=== PATIENT | male | born 1960 | race Caucasian/White ===

== ENCOUNTER 2016-06-25 00:06 | Emergency (ER) | payer BC, OTHER ==
--- NOTE | 2016-06-25 00:13 | EDM.PDOC ---
ED HISTORY OF PRESENT ILLNESS - General Chief Complaint: Cardiovascular Problem Stated Complaint: [facility] Time Seen by Provider: 06/25/16 00:08 - History of Present Illness INITIAL COMMENTS - FREE TEXT/NARRATIVE: 55-year-old male presents emergency room with chest pain. This chest pain started about an hour before arrival. The patient was asleep and it awoke him. The pain is not burning. The pain is substernal and left chest. The patient took 4 aspirin at home prior to calling 911 these were 325 mg aspirin. The patient has not had any recent reflux or heartburn. His chest pain is not associated with diaphoresis or shortness of breath. Patient does not have a prior history of coronary artery disease he is treated for hypothyroidism and this is closely monitor is regular physician. The patient drinks on a regular basis he had 5 or 6 beers tonight. Patient also smokes. Family history is noncontributory. Upon arrival here the patient is near pain free he has a little residual arm pain. - Related Data Allergies/ADRs: Allergies Allergy/AdvReac Type Severity Reaction Status Date / Time No Known Allergies Allergy Verified 06/25/16 00:13 Home Meds: Home Meds Levothyroxine Sodium [Synthroid] 225 mcg PO DAILY 09/02/13 [History] Social & Family History - Tobacco Use Years of Tobacco use: 20 - Alcohol Use Days Per Week of Alcohol Use: 7 Number of Drinks Per Day: 2 Total Drinks Per Week: 14 - Recreational Drug Use Recreational Drug Use: No ED ROS GENERAL - Review of Systems Review Of Systems: See Below Constitutional: Reports: no symptoms HEENT: Reports: No symptoms Respiratory: Reports: no symptoms Cardiovascular: Reports: Chest pain. Denies: Dyspnea on exertion Endocrine: Reports: no symptoms GI/Abdominal: Reports: No symptoms : Reports: no symptoms Neurological: Reports: no symptoms ED EXAM, GENERAL - Physical Exam Exam: See Below Exam Limited By: No limitations General Appearance: alert, no apparent distress Head: atraumatic, normocephalic Neck: normal inspection, supple, non-tender, full range of motion. No: lymphadenopathy (L), lymphadenopathy (R) Respiratory/Chest: no respiratory distress, lungs clear, normal breath sounds Cardiovascular: regular rate, rhythm, no edema, no murmur GI/Abdominal: normal bowel sounds, soft, non tender Back Exam: normal inspection, CVA tenderness (L), CVA tenderness (R) Extremities: normal inspection, no pedal edema Neurological: alert, oriented, normal cognition, other (patient smells of alcohol but is otherwise cooperative and answers questions appropriately.) Skin Exam: Warm, Dry EKG INTERPRETATION EKG Date: 06/25/16 Rhythm: NSR [place]: normal P-wave: present QRS: normal ST-T: other (Baseline variability in leads 1, [address] elevation in leads 2 and 3 however as lead 2 is followed this appears to be artifactual) QT: normal NV/PQ Interval: normal Comparison: NA - no prior EKG EKG Interpretation Comments: borderline EKG no acute ischemic changes Course - Vital Signs Last Recorded V/S: Last Vital Signs Temp 36.4 C 06/25/16 00:09 Pulse 78 06/25/16 04:31 Resp 16 06/25/16 04:31 BP 132/78 06/25/16 04:31 Pulse Ox 98 06/25/16 04:31 - Orders/Labs/Meds Orders: Active Orders 24 hr Category Date Time Status EKG 12 Lead [EKG Documentation Completion] [RC] STAT Care 06/25/16 00:16 Active Chest 1V Frontal [CR] Stat Exams 06/25/16 00:18 Taken Heparin Sodium/D5W [Heparin 25,000 Units in D5W 500 ML] Med 06/25/16 04:00 Active 25,000 units in 500 ml IV TITRATE Medication Orders Heparin Sodium/Dextrose (Heparin 25,000 Units In D5w 500 Ml) 25,000 units in 500 mls @ 20.684 mls/hr IV TITRATE DEBRA; 12 UNITS/KG/HR PRN Reason: Protocol Last Admin: 06/25/16 04:08 Dose: 20.684 mls/hr Labs: Laboratory Tests 06/25/16 06/25/16 06/25/16 Range/Units 00:12 00:12 00:12 WBC 7.90 (4.23-9.07) K/mm3 RBC 4.61 L (4.63-6.08) M/mm3 Hgb 17.5 (13.7-17.5) gm/L Hct 46.5 (40.1-51.0) % MCV 100.9 H (79.0-92.2) fl MCH 38.0 H (25.7-32.2) pg MCHC 37.6 H (32.2-35.5) g/dl RDW Std Deviation 45.9 H (35.1-43.9) fL Plt Count 165 (163-337) K/mm3 MPV 10.2 (9.4-12.3) fl Neut % (Auto) 57.5 (34.0-67.9) % Lymph % (Auto) 30.1 (21.8-53.1) % [place] % (Auto) 8.4 (5.3-12.2) % Eos % (Auto) 3.4 (0.8-7.0) Baso % (Auto) 0.6 (0.1-1.2) % Neut # 4.54 (1.78-5.38) K/mm3 Lymph # 2.38 (1.32-3.57) K/mm3 [place] # 0.66 (0.30-0.82) K/mm3 Eos # 0.27 (0.04-0.54) K/mm3 Baso # 0.05 (0.01-0.08) K/mm3 Manual Slide Review Abnormal smear PT (8.0-13.0) SECONDS INR APTT (22-36) SECONDS D-Dimer, Quantitative < 0.19 L (0.19-0.59) mg/L Sodium 142 (136-145) mEq/L Potassium 3.4 L (3.5-5.1) mEq/L Chloride 106 (98-107) mEq/L Carbon Dioxide 24 (21-32) mEq/L Anion Gap 15.4 H (5-15) BUN 10 (7-18) mg/dL Creatinine 0.8 (0.7-1.3) mg/dL Est Cr Clr Drug Dosing 115.86 mL/min Estimated GFR (MDRD) > 60 (>60) mL/min BUN/Creatinine Ratio 12.5 L (14-18) Glucose 122 H (74-106) mg/dL Calcium 8.7 (8.5-10.1) mg/dL Total Bilirubin 0.4 (0.2-1.0) mg/dL AST 17 (15-37) U/L ALT 39 (16-63) U/L Alkaline Phosphatase 61 (46-116) U/L Troponin I 0.025 (0.00-0.056) ng/mL Total Protein 6.4 (6.4-8.2) g/dl Albumin 3.5 (3.4-5.0) g/dl Globulin 2.9 gm/dL Albumin/Globulin Ratio 1.2 (1-2) Ethyl Alcohol 0.11 (0.00) gm% 06/25/16 06/25/16 Range/Units 00:12 03:00 WBC (4.23-9.07) K/mm3 RBC (4.63-6.08) M/mm3 Hgb (13.7-17.5) gm/L Hct (40.1-51.0) % MCV (79.0-92.2) fl MCH (25.7-32.2) pg MCHC (32.2-35.5) g/dl RDW Std Deviation (35.1-43.9) fL Plt Count (163-337) K/mm3 MPV (9.4-12.3) fl Neut % (Auto) (34.0-67.9) % Lymph % (Auto) (21.8-53.1) % [place] % (Auto) (5.3-12.2) % Eos % (Auto) (0.8-7.0) Baso % (Auto) (0.1-1.2) % Neut # (1.78-5.38) K/mm3 Lymph # (1.32-3.57) K/mm3 [place] # (0.30-0.82) K/mm3 Eos # (0.04-0.54) K/mm3 Baso # (0.01-0.08) K/mm3 Manual Slide Review PT 10.2 (8.0-13.0) SECONDS INR 0.96 APTT 24 (22-36) SECONDS D-Dimer, Quantitative (0.19-0.59) mg/L Sodium (136-145) mEq/L Potassium (3.5-5.1) mEq/L Chloride (98-107) mEq/L Carbon Dioxide (21-32) mEq/L Anion Gap (5-15) BUN (7-18) mg/dL Creatinine (0.7-1.3) mg/dL Est Cr Clr Drug Dosing mL/min Estimated GFR (MDRD) (>60) mL/min BUN/Creatinine Ratio (14-18) Glucose (74-106) mg/dL Calcium (8.5-10.1) mg/dL Total Bilirubin (0.2-1.0) mg/dL AST (15-37) U/L ALT (16-63) U/L Alkaline Phosphatase (46-116) U/L Troponin I 0.123 H* (0.00-0.056) ng/mL Total Protein (6.4-8.2) g/dl Albumin (3.4-5.0) g/dl Globulin gm/dL Albumin/Globulin Ratio (1-2) Ethyl Alcohol (0.00) gm% Meds: Medications Generic Name Dose Route Start Last Admin Trade Name Freq PRN Reason Stop Dose Admin Heparin Sodium/Dextrose 25,000 units in 500 mls @ 20.684 mls/hr 06/25/16 04: 00 06/25/16 04:08 Heparin 25,000 Units In D5w 500 Ml IV 20.684 mls/hr TITRATE DEBRA Administration Protocol 12 UNITS/KG/HR Discontinued Medications Generic Name Dose Route Start Last Admin Trade Name Freq PRN Reason Stop Dose Admin Al Hydroxide/Mg Hydroxide 30 0 ml 06/25/16 00:40 06/25/16 00:44 ml/ Lidocaine HCl 15 ml PO 06/25/16 00:41 45 ml STAT STA Administration Heparin Sodium (Porcine) 4,000 units 06/25/16 04:00 06/25/16 04:07 Heparin Sodium IVPUSH 06/25/16 04:01 4,000 units STAT STA Administration Pantoprazole Sodium 40 mg 06/25/16 03:37 06/25/16 03:44 Protonix Iv IVPUSH 06/25/16 03:38 40 mg ONETIME ONE Administration - Re-Assessments/Exams Free Text/Narrative Re-Assessment/Exam: 06/25/16 04:20 The patient was essentially pain-free when he arrived to the emergency room he had a little residual discomfort in his left arm he rated this a less than a 1/ 10. He has a distant history of gastritis he was given a GI cocktail this did not seem to make any difference however he was treatment pain-free at that point. He's remained pain free in the emergency room. Chest x-ray shows no acute cardiopulmonary changes EKG is nondiagnostic. Initial troponin normal the patient consented to 3 hours of observation and repeat troponin this did come back elevated at 0.123. We received word of this at 3:30 this morning. Patient' s case was discussed with the patient and his they wished to be sent to [facility] in [place]. Patient's case was discussed with Dr. Ta the hospitalist on-call. He wished for us to review the situation with the refrigeration person. Case was discussed with refrigeration person auto transmission technician who recommended heparin and transfer. Patient has remained pain free. With his chronic alcoholism, albeit no dyspepsia at this time, we will give Protonix 40 mg IV. Departure - Departure Time of Disposition: 03:40 Disposition: DC/Tfer to Acute Hospital 02 Reason for Transfer *Q: Other Condition: fair Clinical Impression: NSTEMI (non-ST elevated myocardial infarction) Referrals: PCP,None [Primary Care Provider] - - My Orders Last 24 Hours: My Active Orders 06/25/16 00:16 EKG 12 Lead [EKG Documentation Completion] [RC] STAT 06/25/16 00:18 Chest 1V Frontal [CR] Stat 06/25/16 04:00 Heparin Sodium/D5W [Heparin 25,000 Units in D5W 500 ML] 25,000 units in 500 ml IV TITRATE - Assessment/Plan Last 24 Hours: My Active Orders 06/25/16 00:16 EKG 12 Lead [EKG Documentation Completion] [RC] STAT 06/25/16 00:18 Chest 1V Frontal [CR] Stat 06/25/16 04:00 Heparin Sodium/D5W [Heparin 25,000 Units in D5W 500 ML] 25,000 units in 500 ml IV TITRATE
[2016-06-25] MEDS: Alum Hydrox/Mag Hydrox/Simeth 30 ML, Lidocaine 2% 15 ML PO STA ×2 (00:44)
[2016-06-25] MEDS: Pantoprazole 40 MG Vial IVPUSH ONE (03:44)
[2016-06-25] MEDS: Heparin Sodium 5,000 Units/ML Vial IVPUSH STA (04:07)
[2016-06-25] MEDS: Heparin Sodium/D5W 25,000 UNITS/500 ML BAG IV SCH (04:08)
[2016-06-25 04:32] VITALS: BP 132/78
--- NOTE | 2016-06-30 07:06 | CR ---
Chest: Portable view of the chest was obtained. Comparison: Previous chest x-ray of 11/09/12. Heart size and mediastinum are normal. Lung markings are increased which appear to be chronic. No acute infiltrates are seen. Bony structures are grossly intact. Impression: 1. Stable increased lung markings from prior study presumably due to fibrosis. 2. Nothing acute is seen on portable chest x-ray. Diagnostic code #3
== END 2016-06-25 04:35 ==
LOC: JD.ED 00:06
DX: I21.4 Non-ST elevation (NSTEMI) myocardial infarction (principal); Z79.899 Other long term (current) drug therapy
CPT/HCPCS: 36415; 71010; 80053; 84484; 85025; 85379; 85610; 85730; 93005; 96365; 96375; 96376; 99285; A9270; C9113; G0480; J1644